=== PATIENT | female | born 1990 | race Caucasian/White ===

== ENCOUNTER → 2018-09-05 12:56 | Outpatient (CLI) | payer OTHER, SELFPAY ==
--- NOTE | 2018-09-05 | DI.MRI.S_ITS ---
PROCEDURE: MR CERVICAL SPINE WO/W CON INDICATIONS: PITUITARY CYST TECHNIQUE: Noncontrast sagittal T1 spin echo and T2 fast spin echo, sagittal STIR, foraminal oblique sagittal T2 fast spin echo, axial gradient echo or T2 fast spin echo through the cervical spine. After the administration of contrast, axial and sagittal T1 spin echo with fat saturation through the cervical spine. COMPARISON: None. FINDINGS: Image quality: Motion degraded on several pulse sequences. Alignment and curvature: Trace anterolisthesis of C6 on C7. Marrow: Marrow is normal in overall signal, without suspicious enhancement. Spinal cord: Visualized spinal cord has normal size and signal. No cerebellar tonsillar herniation. No abnormal intramedullary enhancement. Paraspinous soft tissues: No paravertebral masses or suspicious enhancement. However, suboptimal evaluation as there is significant motion artifact on the axial post contrast pulse sequence C2-3: Normal appearance. C3-4: Bilateral uncovertebral arthropathy and posterior intervening disc osteophyte complex, mild. No definite central canal stenosis. No foraminal narrowing. Minimal right foraminal narrowing C4-5: Bilateral uncovertebral arthropathy and posterior intervening disc osteophyte complex, and mild bilateral facet degeneration. No central canal stenosis. Mild bilateral foraminal narrowing. C5-6: Normal appearance. C6-7: Bilateral uncovertebral arthropathy and posterior intervening disc osteophyte complex with superimposed minimal central protrusion, and bilateral facet arthropathy, right greater than left. Mild canal narrowing. No left foraminal stenosis. Mild right foraminal narrowing C7-T1: No canal stenosis. No foraminal narrowing. IMPRESSION: No abnormal enhancement. No cord signal abnormality. Mild cervical disc degeneration and facet arthropathy as above without high-grade canal stenosis. Mild right C6-C7 foraminal narrowing. Mild bilateral C4-C5 foraminal narrowing. Dictated by: Florian Hines M.D. on 09/05/2018 at 15:17 Approved by: Florian Hines M.D. on 09/05/2018 at 15:23
--- NOTE | 2018-09-05 13:04 | DI.MRI.S_ITS ---
PROCEDURE: MR HEAD/BRAIN WO/W CON INDICATIONS: PITUITARY CYST TECHNIQUE: Noncontrast axial T1 spin echo, axial T2 fast spin echo, sagittal and axial FLAIR, axial gradient echo, axial diffusion and ADC through the brain. After the administration of contrast, dynamic contrast-enhanced coronal T1 spin echo with fat saturation through the pituitary COMPARISON: [facility], RG, MRI BRAIN ([facility]) W/WO CONTRAST, 10/02/2015, 11:32. FINDINGS: Image quality: Excellent. Pituitary: Compared to 10/02/15 there is unchanged appearance of intrinsic T1 bright region of the posterior pituitary. This measures approximately 5 x 5 mm on sagittal pulse sequences and not well seen on axial pulse sequences due to motion artifact No focal delayed enhancement seen within the pituitary gland. No deviation of the pituitary stalk or optic chiasm. No suprasellar mass seen. Cavernous sinus is unremarkable. CSF spaces: Ventricles are normal in size and shape. Basal cisterns are patent. No extra-axial fluid collections. Brain: No acute intracranial bleeds or mass effects. There is mild anterior left frontal encephalomalacia, with unchanged appearance. There are areas of small scattered blooming artifact in the region of the anterior frontal lobes, seen in the gradient echo pulse sequence in keeping with old punctate petechial hemorrhages from prior remote trauma. These appear unchanged. Chang-white matter interface is intact. No abnormal intracranial enhancement. Diffusion weighted images demonstrate no acute ischemic insults. Brainstem appears normal. Normal intravascular flow voids are present. Skull and face: Calvarial marrow signal is normal. Orbits appear normal. Sinuses: Presumed left maxillary mucous retention cyst or polyp. The mastoids appear clear. IMPRESSION: Overall, stable examination since 10/02/15. Redemonstration of subcentimeter T1 hyperintense region in the posterior pituitary, which may be related unchanged posterior fossa cyst although differential includes posterior pituitary bright spot (T1 shortening related to vasopressin), an anatomic variant. No interval change. Mild anterior left frontal lobe encephalomalacia. Left maxillary mucous retention cyst or polyp as before Dictated by: Florian Hines M.D. on 09/05/2018 at 15:01 Approved by: Florian Hines M.D. on 09/05/2018 at 15:16
== END ==
PROVIDERS: Visit Provider Internal Medicine
DX: E23.6 Other disorders of pituitary gland (principal); G93.89 Other specified disorders of brain; M50.31 Other cervical disc degeneration, high cervical region; M47.812 Spondylosis without myelopathy or radiculopathy, cervical region; M48.02 Spinal stenosis, cervical region
CPT/HCPCS: 70553; 72156; A9579

== ENCOUNTER 2020-05-02 16:40 | Emergency (ER) | payer OTHER, SELFPAY ==
[2020-05-02 16:52] VITALS: BP 129/78; PULSE 120; RESP 16; TEMP 36.4; BMI 19.3
--- NOTE | 2020-05-02 17:04 | ED_ITS ---
HPI - Wound/Laceration <ISAIAS Lee - Last Filed: 05/02/20 18:50> General Chief Complaint: Wound/Laceration Stated Complaint: Tooth cut in lip Time Seen by Provider: 05/02/20 16:43 History of Present Illness HPI narrative: 30-year-old female presents to the emergency department for a laceration to her lip and chipped teeth after falling. She was drinking alcohol and tripped over a Maged handle that her boyfriend was using to work on a car, she fell and hit her teeth on the car and the cement. Her boyfriend was present, denies any loss of consciousness, able to ambulate after the fall. Denies any head pain. Patient reports she has a lip laceration and states it is a dull aching pain. Patient denies any vision changes, neck pain, chest pain, shortness of breath, vomiting, dizziness, or any other concerns. Related Data Home Medications Medication Instructions Recorded Confirmed citalopram 10 mg tablet 10 mg PO DAILY 01/29/19 01/29/19 Previous Rx's Medication Instructions Recorded amoxicillin-pot clavulanate 1 tab PO BID 10 Days #20 tab 05/02/20 [Augmentin] Allergies Allergy/AdvReac Type Severity Reaction Status Date / Time No Known Drug Allergies Allergy Unverified 01/29/19 15:04 Review of Systems <ISAIAS Lee - Last Filed: 05/02/20 18:50> Review of Systems Narrative: REVIEW OF SYSTEMS: GENERAL: Denies fever or chills. HENT: Denies head trauma. EYE: Denies double vision or vision loss. CARDIOVASCULAR: Denies syncope. MUSCULOSKELETAL: Denies weakness, or deformities. INTEGUMENTARY: Complains of laceration to lip, see HPI. NEURO: Denies numbness or tingling. Patient History <ISAIAS Lee - Last Filed: 05/02/20 18:50> Medical History Closed TBI (traumatic brain injury) (Chronic) Family History Grandfather Hypertension Social History household members: none Smoking Status: Current every day smoker alcohol intake: never substance use type: does not use Smoking Status: Current every day smoker alcohol intake frequency: a few times a week Substance Use Type: marijuana Exam <ISAIAS Lee - Last Filed: 05/02/20 18:50> Initial Vital Signs Initial Vital Signs: Vital Signs Temperature 97.6 F 05/02/20 16:52 Pulse Rate 120 H 05/02/20 16:52 Respiratory Rate 16 05/02/20 16:52 Blood Pressure 129/78 05/02/20 16:52 PHYSICAL EXAMINATION: GENERAL: Well groomed, alert, and cooperative. Answers questions promptly and appropriately. Vital signs noted. HENT: Normocephalic, atraumatic. See below for description of lip laceration. Small chips in the midline corners of the 2 front teeth. A carried noted to left front tooth. RESPIRATORY: Normal respiratory rate, trachea midline, airway patent. No stridor, nasal flaring or accessory muscle use. NECK: No pain with palpation. MUSCULOSKELETAL: Normal gait and coordination. Equal tone and mass bilaterally. EXTREMITIES: CMS intact. Moves all extremities. SKIN: Warm, dry, soft, appropriate color for ethnicity. A 2 cm jagged edge V shaped laceration noted to bottom lip on the skin side of the vermilion border, does not involve the vermilion border. A 3 cm laceration noted to the be you call aspect of left lower lip, no foreign bodies wound irrigated extensively before repair. NEURO: Alert and Oriented X 3. Good coordination. PSYCH: Appropriate affect and mood. <Darren Mullen DO - Last Filed: 05/02/20 19:01> Initial Vital Signs Initial Vital Signs: Vital Signs Temperature 97.6 F 05/02/20 16:52 Pulse Rate 120 H 05/02/20 16:52 Respiratory Rate 16 05/02/20 16:52 Blood Pressure 129/78 05/02/20 16:52 Procedures <ISAIAS Lee - Last Filed: 05/02/20 18:50> Laceration Repair Laceration 1: Site: lip Size (cm): 5 Description: irregular Depth: simple, single layer Local Anesthetic: lidocaine 2% and with epi Amount of anesthesia used (mL): 3 Pre-repair: irrigated extensively Skin layer closed with: nylon Size (cm): 6-0 Number of sutures: 4 Technique: simple, interrupted Subcutaneous layer closed with: chromic gut Size: 5-0 Number of sutures: 3 Technique: simple, interrupted Course <ISAIAS Lee - Last Filed: 05/02/20 18:50> Course Course Narrative: Patient tolerated procedure well. Orders Ordered: Discontinued Medications Lidocaine/Epinephrine (Xylocaine 2% W/Epi) 2 ml INJ INTRA-OP ONE Stop: 05/02/20 17:01 Last Admin: 05/02/20 17:07 Dose: 2 ml Documented by: [email or web address] Lidocaine/Sodium Bicarbonate (Buffered Lidocaine 10 Ml Syr) 10 ml INJ NOW ONE Stop: 05/02/20 17:00 Last Admin: 05/02/20 17:07 Dose: Not Given Documented by: IVELISSE Vital Signs Vital signs: Vital Signs - 8 hr 05/02/20 16:52 05/02/20 17:48 Temperature 97.6 F Pulse Rate 120 H 89 Respiratory Rate 16 16 Blood Pressure 129/78 129/78 Pulse Oximetry 99 <Darren Mullen DO - Last Filed: 05/02/20 19:01> Orders Ordered: Discontinued Medications Lidocaine/Epinephrine (Xylocaine 2% W/Epi) 2 ml INJ INTRA-OP ONE Stop: 05/02/20 17:01 Last Admin: 05/02/20 17:07 Dose: 2 ml Documented by: [email or web address] Lidocaine/Sodium Bicarbonate (Buffered Lidocaine 10 Ml Syr) 10 ml INJ NOW ONE Stop: 05/02/20 17:00 Last Admin: 05/02/20 17:07 Dose: Not Given Documented by: IVELISSE Vital Signs Vital signs: Vital Signs - 8 hr 05/02/20 16:52 05/02/20 17:48 Temperature 97.6 F Pulse Rate 120 H 89 Respiratory Rate 16 16 Blood Pressure 129/78 129/78 Pulse Oximetry 99 MDM - Wound/Laceration <ISAIAS Lee - Last Filed: 05/02/20 18:50> Medical Records Attestation: I reviewed the patient's medical records. Lab Data Attestation: I reviewed the patient's lab results. MDM Narrative Medical decision making narrative: 30-year-old female presents to the emergency department for a laceration on her lip. That was repaired with sutures after extensive irrigation. No other signs of head trauma, patient is awake and alert. Reports consuming alcohol tape. No pain in other areas, no concerning symptoms such as syncope or abnormal gait. Antibiotics prescribed for reduction of infection. No foreign bodies observed and wound. Return precautions given for new or worsening symptoms. Patient agreed to plan of care verbalized understanding. Discharge Plan Departure Patient Disposition: Home Clinical Impression: Laceration Discharge Date/Time: 05/02/20 17:48 Instructions: DI for Laceration Repair Activity Restrictions/Additional Instructions: Thank you for entrusting me with your care today. As discussed, sutures have been placed in your lip. The sutures on the inside of your lip will dissolve. The sutures on the outside of her lip will need to be taken out in 7-10 days. There are four. I prescribed you antibiotics, please take as directed to prevent infection. Your prescription was sent to [facility] in [place], [place] Return emergency department for any new or worsening symptoms such as severe pain, uncontrollable vomiting, unusual behavior, vision changes, fevers, significant swelling, or any other concerns. Prescriptions: New amoxicillin-pot clavulanate [Augmentin] 875-125 mg tablet 1 tab PO BID 10 Days Qty: 20 RF: 0 No Action citalopram 10 mg tablet 10 mg PO DAILY RF: 0 Referrals: Zelda Lopez MD [Primary Care Provider] - <Darren Mullen DO - Last Filed: 05/02/20 19:01> Cosign ED Attending Cosignature Attestation: I was immediately available in the department for consultation. This documentation has been reviewed and I agree with assessment and plan. Supervised by Darren Mullen DO
[2020-05-02] MEDS: LIDOCAINE 2% W/EPI INJ 2 ML INJ (17:07)
[2020-05-02 17:48] VITALS: BP 129/78; PULSE 89; RESP 16; O2SAT 99
== END 2020-05-02 17:48 | disposition home or self-care (01) ==
PROVIDERS: Emergency Provider Nurse Practitioner; PCP Internal Medicine
DX: S01.511A Laceration without foreign body of lip, initial encounter (principal); W01.198A Fall on same level from slipping, tripping and stumbling with subsequent striking against other object, initial encounter
CPT/HCPCS: 12013; 99281; 99283